=== PATIENT | male | born 1995 | race Caucasian/White ===

== ENCOUNTER 2017-08-07 18:35 | Emergency (ER) | payer BC ==
--- NOTE | 2017-08-07 19:45 | UC ---
Ear Complaint HPI - HPI Summary HPI Summary: ears feel clogged feels like his voice is echoing in his head - History of Current Complaint Chief Complaint: UCEar Stated Complaint: LEFT EAR PAIN Time Seen by Provider: 08/07/17 19:33 Hx Obtained From: Patient Onset/Duration: Gradual Onset, Lasting Days - 2, Still Present Severity Initially: Mild Severity Currently: Mild Aggravating Factors: Nothing Alleviating Factors: Nothing Associated Signs/Symptoms: Positive: Hearing Loss - Allergies/Home Medications Allergies/Adverse Reactions: Allergies Allergy/AdvReac Type Severity Reaction Status Date / Time No Known Allergies Allergy Verified 08/07/17 19:57 PMH/Surg Hx/FS Hx/Imm Hx Previously Healthy: Yes - Surgical History Surgical History: Yes Surgery Procedure, Year, and Place: T&A - Family History Known Family History: Positive: None - Social History Occupation: Employed Full-time Lives: With Family Alcohol Use: None Substance Use Type: None Smoking Status (MU): Never Smoked Tobacco - Immunization History Vaccination Up to Date: Yes Review of Systems Constitutional: Negative Skin: Negative Eyes: Negative ENT: Ear Ache Respiratory: Negative Cardiovascular: Negative Gastrointestinal: Negative Genitourinary: Negative Motor: Negative Neurovascular: Negative Musculoskeletal: Negative Neurological: Negative Psychological: Negative Is Patient Immunocompromised?: No All Other Systems Reviewed And Are Negative: Yes Physical Exam Triage Information Reviewed: Yes Appearance: Well-Appearing, No Pain Distress, Well-Nourished Vital Signs Reviewed: Yes Eye Exam: Normal Eyes: Positive: Conjunctiva Clear ENT Exam: Normal ENT: Positive: Normal ENT inspection, Hearing grossly normal, Pharynx normal, TM dull - right, Uvula midline, Other - left ear-cerumen impaction. Negative: Nasal congestion, Tonsillar swelling, Tonsillar exudate, Trismus, Muffled voice , Hoarse voice, Dental tenderness, Sinus tenderness Dental Exam: Normal Neck exam: Normal Neck: Positive: Supple, Nontender Respiratory Exam: Normal Respiratory: Positive: Chest non-tender, Lungs clear, Normal breath sounds, No respiratory distress, No accessory muscle use Cardiovascular Exam: Normal Cardiovascular: Positive: RRR, Pulses Normal, Brisk Capillary Refill Musculoskeletal Exam: Normal Musculoskeletal: Positive: Strength Intact, ROM Intact, No Edema Neurological Exam: Normal Neurological: Positive: Alert, Muscle Tone Normal Psychological Exam: Normal Skin Exam: Normal Re-Evaluation - Re-Evaluation First Eval Change: Unchanged - Cerumen from left ear removed-no change in hearing---tm's look ok---(old scaring ) Ear Complaint Course/Dx - Course Course Of Treatment: Mucinex D, Flonase, increase fluids follow with pcp prn - Differential Dx/Diagnosis Provider Diagnoses: Cerumen impaction left ear resolved, serrous otitis Discharge - Discharge Plan Condition: Stable Disposition: HOME Prescriptions: Fluticasone NASAL SPRAY 50MCG* [Flonase NASAL SPRAY 50MCG*] 2 spray BOTH NARES DAILY #1 btl Patient Education Materials: Decongestant/Expectorant (By mouth), Serous Otitis Media (ED), How to Use Nasal Drift (ED) Referrals: Arvind Smith MD [Primary Care Provider] - If Needed
[2017-08-07 19:59] VITALS: BP 118/73
== END 2017-08-07 20:28 | disposition home or self-care (01) ==
LOC: UCCORT 18:35
DX: H61.22 Impacted cerumen, left ear (principal); H65.92 Unspecified nonsuppurative otitis media, left ear
CPT/HCPCS: 99212; G0463

== ENCOUNTER 2017-12-03 13:56 | Emergency (ER) | payer SELFPAY ==
[2017-12-03 15:16] VITALS: BP 118/54
[2017-12-03] MEDS ORDERED: Fluorescein Sod TOPICAL 0.6* 0.6 MG TEST OPHTHALMIC ONE (16:01)
--- NOTE | 2017-12-03 16:07 | UC ---
Eye Complaint HPI - HPI Summary HPI Summary: patient was fixing a door and felt something in his eye. left eye is irritated , clear tearing - History of Current Complaint Chief Complaint: UCEye Stated Complaint: (L) EYE COMPLAINT W/C Time Seen by Provider: 12/03/17 15:52 Hx Obtained From: Patient Onset/Duration: Sudden Onset, Lasting Hours Timing: Constant Severity Initially: Moderate Severity Currently: Moderate Pain Intensity: 5 Location of Injury: Conjunctiva, Eye Lid (upper), Sclera Associated Signs And Symptoms: Positive: Photophobia, Drainage (Clear) - Allergies/Home Medications Allergies/Adverse Reactions: Allergies Allergy/AdvReac Type Severity Reaction Status Date / Time No Known Allergies Allergy Verified 12/03/17 15:13 Home Medications: Home Medications NK [No Home Medications Reported] 12/03/17 [History Confirmed 12/03/17] PMH/Surg Hx/FS Hx/Imm Hx Previously Healthy: Yes - Surgical History Surgical History: Yes Surgery Procedure, Year, and Place: T&A - Family History Known Family History: Positive: None, Cardiac Disease, Hypertension - Social History Alcohol Use: None Substance Use Type: None Smoking Status (MU): Never Smoked Tobacco Type: Smokeless Tobacco Amount Used/How Often: 2 CANS/WK Length of Time of Smoking/Using Tobacco: 4 YRS - Immunization History Vaccination Up to Date: Yes Review of Systems Constitutional: Negative Skin: Negative Eyes: Eye Redness, Photophobia ENT: Negative Respiratory: Negative Cardiovascular: Negative Gastrointestinal: Negative Genitourinary: Negative Motor: Negative Neurovascular: Negative Musculoskeletal: Negative Neurological: Negative Psychological: Negative Is Patient Immunocompromised?: No All Other Systems Reviewed And Are Negative: Yes Physical Exam Triage Information Reviewed: No Appearance: Well-Appearing, Well-Nourished, Pain Distress Vital Signs: Initial Vital Signs Temp 99.2 F 12/03/17 15:13 Pulse 60 12/03/17 15:13 Resp 16 12/03/17 15:13 BP 118/54 12/03/17 15:13 Pulse Ox 100 12/03/17 15:13 Vital Signs Reviewed: Yes Eyes: Positive: Conjunctiva Clear, Discharge - clear tears ENT Exam: Normal ENT: Positive: Pharyngeal erythema, TMs normal Dental Exam: Normal Neck exam: Normal Neck: Positive: Supple, Nontender, No Lymphadenopathy Respiratory Exam: Normal Respiratory: Positive: Chest non-tender, Lungs clear, Normal breath sounds Cardiovascular Exam: Normal Cardiovascular: Positive: RRR, No Murmur, Pulses Normal Abdominal Exam: Normal Abdomen Description: Positive: Nontender, No Organomegaly, Soft Bowel Sounds: Positive: Present Musculoskeletal Exam: Normal Neurological Exam: Normal Psychological Exam: Normal Skin Exam: Normal Eye Complaint Course/Dx - Course Course Of Treatment: hx obtained, exam performed ,meds reviewed, ful barbara exam revealed abraision, small FB removed - Differential Dx/Diagnosis Differential Diagnosis/HQI/PQRI: Foreign Body, Penetrating Injury, Periorbital Cellulitis, Orbital Cellulitis Provider Diagnoses: foreign body left eye Discharge - Sign-Out/Discharge Documenting (check all that apply): Discharge - Discharge Plan Condition: Stable Disposition: HOME Patient Education Materials: Eye Foreign Body (ED) Referrals: Arvind Smith MD [Primary Care Provider] - Additional Instructions: 1. use the medication as prescribed. 2. Follow up with eye doctor if you are not improving - Billing Disposition and Condition Condition: STABLE Disposition: HOME
== END 2017-12-03 16:20 | disposition home or self-care (01) ==
LOC: UCCORT 13:56
DX: T15.92XA Foreign body on external eye, part unspecified, left eye, initial encounter (principal); F17.220 Nicotine dependence, chewing tobacco, uncomplicated
CPT/HCPCS: 99212; G0463

== ENCOUNTER 2018-05-19 08:36 | Emergency (ER) | payer BC, OTHER ==
[2018-05-19] MEDS ORDERED: Ketorolac INJ* 30 MG/ML 1 ML VIAL IV ONE (08:47)
--- NOTE | 2018-05-19 08:49 | ED ---
HPI Chest Pain - HPI Summary HPI Summary: This pt is a 22 y/o male presenting to [facility] c/o chest pain that began around 07 :00 - 07:30 this morning. Pt reports that he was sitting down on his couch when his chest pain began. He describes non radiating stabbing chest pain located on the left side of his chest. Additionally states he had diaphoresis. His chest pain is aggravated with deep breaths and lifting up his left arm. Denies nausea , vomiting, dizziness, fever. Denies any PMHx. Pt is not on any daily medications. He chews tobacco but denies drug and alcohol use. No FHx of [place] at his age. - History of Current Complaint Hx Obtained From: Patient Onset/Duration: Started Hours Ago, Atraumatic, Still Present Timing: Lasting Hours Current Severity: Severe Pain Intensity: 10 Pain Scale Used: 0-10 Numeric Chest Pain Location: Left Anterior Chest Pain Radiates: No Character: Sharp/Stabbing - stabbing Aggravating Factor(s): Movement - of left arm, Deep Breaths Alleviating Factor(s): Nothing Associated Signs and Symptoms: Positive: Chest Pain, Diaphoresis. Negative: Dizziness, Fever, Chills, Nausea, Vomiting - Allergy/Home Medications Allergies/Adverse Reactions: Allergies Allergy/AdvReac Type Severity Reaction Status Date / Time No Known Allergies Allergy Verified 05/19/18 08:52 Home Medications: Home Medications NK [No Home Medications Reported] 05/19/18 [History Confirmed 05/19/18] PMH/Surg Hx/FS Hx/Imm Hx Endocrine/Hematology History: Denies: Hx Diabetes Cardiovascular History: Denies: Hx Hypertension - Surgical History Surgery Procedure, Year, and Place: T&A Infectious Disease History: Denies: Hx Clostridium Difficile, Hx Hepatitis, Hx Human Immunodeficiency Virus (HIV), Hx of Known/Suspected MRSA, Hx Shingles, Hx Tuberculosis, Hx Known/ Suspected VRE, Hx Known/Suspected VRSA, History Other Infectious Disease, Traveled Outside the [place] in Last 30 Days - Family History Known Family History: Positive: Cardiac Disease, Hypertension Family History: [place] - Social History Alcohol Use: None Substance Use Type: Reports: None Smoking Status (MU): Never Smoked Tobacco Type: Smokeless Tobacco Amount Used/How Often: 2 CANS/WK Length of Time of Smoking/Using Tobacco: 4 YRS Review of Systems Positive: Skin Diaphoresis. Negative: Fever, Chills Positive: Chest Pain Negative: Shortness Of Breath Negative: Vomiting, Nausea Skin: Negative Neurological: Other - NEG: dizziness All Other Systems Reviewed And Are Negative: Yes Physical Exam - Summary Physical Exam Summary: VITAL SIGNS: Reviewed. GENERAL: Patient is an obese male who is lying comfortable in the stretcher. Patient is not in any acute respiratory distress. HEAD AND FACE: No signs of trauma. No ecchymosis, hematomas or skull depressions. No sinus tenderness. EYES: PERRLA, EOMI x 2, No injected conjunctiva, no nystagmus. EARS: Hearing grossly intact. Ear canals and tympanic membranes are within normal limits. MOUTH: Oropharynx within normal limits. NECK: Supple, trachea is midline, no adenopathy, no JVD, no carotid bruit, no c- spine tenderness, neck with full ROM. CHEST: Symmetric, reproducible chest pain at palpation. LUNGS: Clear to auscultation bilaterally. No wheezing or crackles. CVS: Regular rate and rhythm, S1 and S2 present, no murmurs or gallops appreciated. ABDOMEN: Soft, non-tender. No signs of distention. No rebound, no guarding, and no masses palpated. Bowel sounds are normal. EXTREMITIES: FROM in all major joints, no edema, no cyanosis or clubbing. NEURO: Alert and oriented x 3. No acute neurological deficits. Speech is normal and follows commands. SKIN: Dry and warm Triage Information Reviewed: Yes Vital Signs Reviewed: Yes Diagnostics - Laboratory Result Diagrams: 05/19/18 09:15 05/19/18 09:15 Lab Statement: Any lab studies that have been ordered have been reviewed, and results considered in the medical decision making process. - Radiology Chest XR Xray Interpretation: Positive (See Comments) - IMPRESSION: Relative low lung volumes. Noted pulmonary opacities may represent atelectasis or bronchopneumonia. Dr. Foster has reviewed this report. Radiology Interpretation Completed By: Radiologist - EKG 08:51 Cardiac Rate: Bradycardia - at 58 bpm EKG Rhythm: Sinus Bradycardia EKG Interpretation: No ST elevations. Left ventricular hypertrophy. Re-Evaluation - Re-Evaluation First Eval Re-Evaluation Time: 12:41 Comment: I reviewed test results with pt. He will be discharged home. Chest Pain Course/Dx - Course Assessment/Plan: This pt is a 22 y/o male presenting to [facility] c/o chest pain that began around 07:00 - 07:30 this morning. Pt reports that he was sitting down on his couch when his chest pain began. He describes non radiating stabbing chest pain located on the left side of his chest. Additionally states he had diaphoresis. His chest pain is aggravated with deep breaths and lifting up his left arm. Denies nausea, vomiting, dizziness, fever. Denies any PMHx. Pt is not on any daily medications. He chews tobacco but denies drug and alcohol use. No FHx of [place] at his age. Blood work without any significant abnormality except for glucose 103, AST of 74, AST is 97, total protein is 6.1. EKG shows no ST elevations. Chest x-ray shows no acute pathology. In the ED course the patient was given Toradol for the pain and the symptoms have significantly improved. D-dimer is less than 200 therefore I have no suspicion for PE. Since the patient is feeling better and the blood work is within normal limits I will discharge the patient home with follow-up from his PCP. At this point the patient is hemodynamically stable, alert and oriented 3. I discussed all the findings and test results with the patient. Patient was instructed to return to the emergency room immediately if any of the symptoms return or worsens. Plan of care was discussed with the patient and understands and agrees. All questions were answered at patient satisfaction. There were no further complaints or concerns. Lung exam before discharge: CTA B/L. Good air exchange. No wheezing or crackles heard. CVS: S1 and S2 present. No murmurs appreciated. Patient is alert and oriented x 3. Patient is hemodynamically stable. Patient will be discharged home with follow up from PCP in the next 2-3 days. - Chest Pain Differential Diagnosis/HQI/PQRI: Acute [place], ACS, Angina, CHF, Chest Wall, GI Disease, Lower Respiratory Infection, Pulmonary Edema - Diagnoses Provider Diagnoses: Atypical chest pain Discharge - Sign-Out/Discharge Documenting (check all that apply): Patient Departure - Discharge home - Discharge Plan Condition: Stable Disposition: HOME Patient Education Materials: Chest Pain (ED) Referrals: Arvind Smith MD [Primary Care Provider] - Additional Instructions: FOLLOW UP WITH YOUR PRIMARY CARE PROVIDER IN 2-3 DAYS. RETURN TO THE ED FOR ANY NEW OR WORSENING SYMPTOMS. - Billing Disposition and Condition Condition: STABLE Disposition: Home - Attestation Statements Document Initiated by Scribe: Yes Documenting Scribe: Maria C Decker Provider For Whom Hermila is Documenting (Include Credential): Satnam Foster MD Scribe Attestation: Maria C Cooley, scribed for Satnam Foster MD on 05/22/18 at 1201. Scribe Documentation Reviewed: Yes Provider Attestation: The documentation as recorded by the Maria C marie accurately reflects the service I personally performed and the decisions made by , Satnam Foster MD
[2018-05-19 09:27] LABS: ABS Basophils 0 10^3/ul (0-0.2); ABS Eosinophils 0.2 10^3/ul (0-0.6); ABS Lymphocytes 1.1 10^3/ul (1.0-4.8); ABS Monocytes 0.6 10^3/ul (0-0.8); ABS Neutrophils 5.5 10^3/ul (1.5-7.7); ABS Nucleated RBC 0 10^3/ul; Eosinophil % 2.3 % (0-6); Hematocrit 41 % (42-52); Hemoglobin 14.2 g/dl (14.0-18.0); Lymphocyte % 15.1 % (25-47); Mean Corpuscular HGB Conc 35 g/dl (31-36); Mean Corpuscular Hemoglobin 29 pg (27-31); Mean Corpuscular Volume 83 fL (80-94); Mean Platelet Volume 8.2 um3 (7.4-10.4); Nucleated Red Blood Cells % 0.1; Platelet Count 225 10^3/ul (150-450); Red Blood Count 4.88 10^6/ul (4.00-5.40); Red Cell Distribution Width 14 % (10.5-15); White Blood Count 7.4 10^3/ul (3.5-10.8)
[2018-05-19 09:45] LABS: EGFR Non-African American 129.5 (>60)
--- NOTE | 2018-05-19 09:48 | RAD ---
INDICATION: Stabbing chest pain worse with deep breathing and LEFT arm involvement. COMPARISON: No relevant prior exams available on the [facility] [place] PACS for comparison. TECHNIQUE: Dual energy PA and routine lateral views of the chest were obtained. REPORT: Bilateral mild alveolar and interstitial opacities. Borderline low lung volumes. Negative for pleural effusion or pneumothorax. The heart, pulmonary vasculature, and mediastinal contours are unremarkable. IMPRESSION: #. Relative low lung volumes. Noted pulmonary opacities may represent atelectasis or bronchopneumonia.
[2018-05-19 13:03] VITALS: BP 107/62
== END 2018-05-19 13:03 | disposition home or self-care (01) ==
LOC: ED 08:36
DX: R07.89 Other chest pain (principal)
CPT/HCPCS: 36415; 71046; 80053; 82550; 82553; 83605; 83735; 83880; 84443; 84484; 85025; 85379; 93005; 96374; 99283; J1885

== ENCOUNTER 2018-08-04 19:18 | Emergency (ER) | payer BC ==
[2018-08-04 20:09] VITALS: BP 124/58
--- NOTE | 2018-08-04 21:36 | UC ---
Throat Pain/Nasal Ha HPI - HPI Summary HPI Summary: One week history of off and on sore throat, with several day history of increasing laryngitis and cough. Feels unwell, not sleeping well. No headache, ear pain, shortness of breath or chest pain. - History of Current Complaint Chief Complaint: UCRespiratory Stated Complaint: ST Time Seen by Provider: 08/04/18 21:29 Hx Obtained From: Patient Onset/Duration: Gradual Onset, Lasting Days Severity: Moderate Pain Intensity: 5 Cough: Nonproductive Associated Signs & Symptoms: Positive: Dysphagia, Hoarseness - Epiglottits Risk Factors Epiglottis Risk Factors: Negative - Allergies/Home Medications Allergies/Adverse Reactions: Allergies Allergy/AdvReac Type Severity Reaction Status Date / Time No Known Allergies Allergy Verified 08/04/18 20:04 PMH/Surg Hx/FS Hx/Imm Hx Previously Healthy: Yes - overweight - Surgical History Surgical History: Yes Surgery Procedure, Year, and Place: T&A - Family History Known Family History: Positive: Cardiac Disease, Hypertension Family History: [place] - Social History Occupation: Employed Full-time - does [employer] Lives: With Family Alcohol Use: Occasionally Substance Use Type: None Smoking Status (MU): Never Smoked Tobacco Type: Smokeless Tobacco Amount Used/How Often: 2 CANS/WK Length of Time of Smoking/Using Tobacco: 4 YRS - Immunization History Vaccination Up to Date: Yes Review of Systems All Other Systems Reviewed And Are Negative: Yes Constitutional: Positive: Fatigue Skin: Positive: Negative Eyes: Positive: Negative ENT: Positive: Sore Throat Respiratory: Positive: Negative Cardiovascular: Positive: Negative Gastrointestinal: Positive: Negative Genitourinary: Positive: Negative Motor: Positive: Negative Neurovascular: Positive: Negative Musculoskeletal: Positive: Negative Neurological: Positive: Negative Psychological: Positive: Negative Is Patient Immunocompromised?: No Physical Exam Triage Information Reviewed: Yes Appearance: Pain Distress - mild Vital Signs: Initial Vital Signs Temp 97.8 F 08/04/18 20:05 Pulse 72 08/04/18 20:05 Resp 16 08/04/18 20:05 BP 124/58 08/04/18 20:05 Pulse Ox 99 08/04/18 20:05 Eyes: Positive: Conjunctiva Clear ENT: Positive: Pharyngeal erythema, TM dull Dental Exam: Normal Neck: Positive: Supple, Nontender, No Lymphadenopathy Respiratory: Positive: Lungs clear, Normal breath sounds Cardiovascular: Positive: RRR, No Murmur Psychological Exam: Normal Skin Exam: Normal Diagnostics - Laboratory Diagnostic Studies Completed/Ordered: rapid strep negative. Throat Pain/Nasal Course/Dx - Course Course Of Treatment: oral steroid for treatment of discomfort of phayrngitis. Use ibuprofen 600mg every 6 hours for control of pain - Differential Dx/Diagnosis Differential Diagnosis/HQI/PQRI: Laryngitis, Pharyngitis, Tonsillitis, URI Provider Diagnosis: Laryngitis Discharge - Sign-Out/Discharge Documenting (check all that apply): Patient Departure All imaging exams completed and their final reports reviewed: No Studies - Discharge Plan Condition: Stable Disposition: HOME Prescriptions: predniSONE [Prednisone 20 MG TAB] 2 tab PO DAILY #10 tablet Patient Education Materials: Laryngitis (ED) Referrals: Arvind Smith MD [Primary Care Provider] - Additional Instructions: It is possible that the single dose of steroids which you had tonight will be enough to ease the discomfort of the sore throat, but additional prednisone has been sent to your pharmacy. You can use ibuprofen 600mg every 6 hours as needed for control of pain. Follow up if you develop fever or shortness of breath. - Billing Disposition and Condition Condition: STABLE Disposition: Home
[2018-08-04] MEDS ORDERED: predniSONE TAB* 20 MG PO ONE (21:37)
== END 2018-08-04 21:48 | disposition home or self-care (01) ==
LOC: UCCORT 19:18
DX: J04.0 Acute laryngitis (principal)
CPT/HCPCS: 87651; 99212; G0463; J7512

== ENCOUNTER 2019-01-02 09:20 | Emergency (ER) | payer BC, OTHER ==
[2019-01-02] MEDS ORDERED: oxyCODONE TAB* 5 MG TAB PO ONE (09:26)
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
[2019-01-02 11:06] VITALS: BP 135/79
== END 2019-01-02 11:04 | disposition home or self-care (01) ==
LOC: ED 09:20
DX: S70.12XA Contusion of left thigh, initial encounter (principal); S40.012A Contusion of left shoulder, initial encounter; V47.0XXA Car driver injured in collision with fixed or stationary object in nontraffic accident, initial encounter; Y92.410 Unspecified street and highway as the place of occurrence of the external cause; F17.220 Nicotine dependence, chewing tobacco, uncomplicated
CPT/HCPCS: 99283; A9270-GY

== ENCOUNTER 2019-01-11 23:22 | Emergency (ER) | payer BC, OTHER ==
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
[2019-01-12] MEDS ORDERED: Acetaminophen TAB* 325 MG PO ONE (00:12)
[2019-01-12 01:18] VITALS: BP 125/83
== END 2019-01-12 01:20 | disposition home or self-care (01) ==
LOC: ED 23:22
DX: S09.90XA Unspecified injury of head, initial encounter (principal); W01.198A Fall on same level from slipping, tripping and stumbling with subsequent striking against other object, initial encounter; Y92.9 Unspecified place or not applicable; F17.220 Nicotine dependence, chewing tobacco, uncomplicated
CPT/HCPCS: 99283; A9270-GY

== ENCOUNTER 2019-06-08 21:47 | Emergency (ER) | payer BC ==
[2019-06-08 22:19] VITALS: BP 119/62
[2019-06-08] MEDS ORDERED: Amoxicillin PO (*) 500 MG CAP PO ONE (22:34)
--- NOTE | 2019-06-08 22:35 | UC ---
Throat Pain/Nasal Ha HPI - HPI Summary HPI Summary: Pt presents with c/o body, aches, sinus pressure, nasal congestion, bilateral ear pain X 4-5 days. - History of Current Complaint Chief Complaint: UCEar Stated Complaint: EAR COMPLAINT Time Seen by Provider: 06/08/19 22:18 Hx Obtained From: Patient Onset/Duration: Gradual Onset, Lasting Days, Still Present Severity: Moderate Pain Intensity: 0 Cough: None Associated Signs & Symptoms: Positive: Sinus Discomfort, Nasal Discharge, Fever - Epiglottits Risk Factors Epiglottis Risk Factors: Negative - Allergies/Home Medications Allergies/Adverse Reactions: Allergies Allergy/AdvReac Type Severity Reaction Status Date / Time No Known Allergies Allergy Verified 06/08/19 22:09 Home Medications: Home Medications Dm/Acetaminophen/Doxylamine [Night Cold-Flu Relief Liq Gel] 1 each PO BEDTIME [History Confirmed 06/08/19] PMH/Surg Hx/FS Hx/Imm Hx Previously Healthy: Yes - Surgical History Surgical History: Yes Surgery Procedure, Year, and Place: T&A - Family History Known Family History: Positive: Cardiac Disease, Hypertension Family History: [place] - Social History Occupation: Employed Full-time Lives: With Family Alcohol Use: Occasionally Substance Use Type: None Smoking Status (MU): Never Smoked Tobacco Type: Smokeless Tobacco Amount Used/How Often: 2 CANS/WK Length of Time of Smoking/Using Tobacco: 4 YRS Have You Smoked in the Last Year: No - Immunization History Vaccination Up to Date: Yes Review of Systems All Other Systems Reviewed And Are Negative: Yes Constitutional: Positive: Fever, Chills, Fatigue Skin: Positive: Negative Eyes: Positive: Negative ENT: Positive: Ear Ache, Nasal Discharge, Sinus Congestion, Sinus Pain/ Tenderness Respiratory: Positive: Cough Cardiovascular: Positive: Negative Gastrointestinal: Positive: Negative Genitourinary: Positive: Negative Motor: Positive: Negative Neurovascular: Positive: Negative Musculoskeletal: Positive: Negative Neurological: Positive: Headache Psychological: Positive: Negative Is Patient Immunocompromised?: No Physical Exam Triage Information Reviewed: Yes Appearance: Ill-Appearing Vital Signs: Initial Vital Signs Temp 98.4 F 06/08/19 22:10 Pulse 83 06/08/19 22:10 Resp 18 06/08/19 22:10 BP 119/62 06/08/19 22:10 Pulse Ox 99 06/08/19 22:10 Vital Signs Reviewed: Yes Eye Exam: Normal ENT: Positive: Nasal congestion, TM bulging - left, TM red - left Dental Exam: Normal Neck exam: Normal Respiratory Exam: Normal Cardiovascular Exam: Normal Musculoskeletal Exam: Normal Neurological Exam: Normal Psychological Exam: Normal Skin Exam: Normal Throat Pain/Nasal Course/Dx - Differential Dx/Diagnosis Differential Diagnosis/HQI/PQRI: Otitis Media, Sinusitis, URI Provider Diagnosis: Otitis media of left ear Discharge ED - Sign-Out/Discharge Documenting (check all that apply): Patient Departure All imaging exams completed and their final reports reviewed: No Studies - Discharge Plan Condition: Stable Disposition: HOME Prescriptions: Amoxicillin PO (*) [Amoxicillin 875 MG (*)] 875 mg PO Q12H #20 tab Patient Education Materials: Ear Infection (ED) Referrals: Arvind Smith MD [Primary Care Provider] - If Needed - Billing Disposition and Condition Condition: STABLE Disposition: Home
== END 2019-06-08 22:40 | disposition home or self-care (01) ==
LOC: UCCORT 21:47
DX: H66.92 Otitis media, unspecified, left ear (principal); R50.9 Fever, unspecified; H92.01 Otalgia, right ear; R09.81 Nasal congestion; R09.89 Other specified symptoms and signs involving the circulatory and respiratory systems
CPT/HCPCS: 99212; A9270-GY; G0463

== ENCOUNTER 2019-09-16 21:11 | Emergency (ER) | payer BC ==
[2019-09-16 21:20] VITALS: BP 132/79
[2019-09-16] MEDS ORDERED: Fluorescein Sodium TOPICAL* 1 MG TEST STRIP OPHTHALMIC ONE (21:37)
[2019-09-16] MEDS ORDERED: Tetracaine 0.5% OPTH.SOL 4 ML* 1 DROP BTL RIGHT EYE ONE (21:37)
--- NOTE | 2019-09-16 21:40 | UC ---
Eye Complaint HPI - HPI Summary HPI Summary: 24-year-old male comes in with a chief complaint of right eye irritation and redness. Started about 2 days ago. He feels irritation in the lower lateral aspect of the eye. 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 Does not wear contacts. Eye feels more irritated in the evening. - History of Current Complaint Chief Complaint: UCEye Stated Complaint: RT EYE CONCERN Time Seen by Provider: 09/16/19 21:35 Pain Intensity: 0 - Allergies/Home Medications Allergies/Adverse Reactions: Allergies Allergy/AdvReac Type Severity Reaction Status Date / Time No Known Allergies Allergy Verified 09/16/19 21:18 Home Medications: Home Medications NK [No Home Medications Reported] 09/16/19 [History Confirmed 09/16/19] PMH/Surg Hx/FS Hx/Imm Hx Previously Healthy: Yes - Surgical History Surgical History: Yes Surgery Procedure, Year, and Place: T&A - Family History Known Family History: Positive: Cardiac Disease, Hypertension Family History: [place] - Social History Alcohol Use: None Substance Use Type: None Smoking Status (MU): Never Smoked Tobacco Type: Smokeless Tobacco Amount Used/How Often: 1 can/day Length of Time of Smoking/Using Tobacco: 4 YRS Have You Smoked in the Last Year: No - Immunization History Vaccination Up to Date: Yes Review of Systems All Other Systems Reviewed And Are Negative: Yes Constitutional: Positive: Negative Skin: Positive: Negative Eyes: Positive: Drainage, Eye Redness ENT: Positive: Negative Respiratory: Positive: Negative Cardiovascular: Positive: Negative Gastrointestinal: Positive: Negative Motor: Positive: Negative Neurovascular: Positive: Negative Musculoskeletal: Positive: Negative Neurological: Positive: Negative Psychological: Positive: Negative Is Patient Immunocompromised?: No Physical Exam Triage Information Reviewed: Yes Appearance: Well-Appearing, No Pain Distress, Well-Nourished Vital Signs: Initial Vital Signs Temp 98.3 F 09/16/19 21:18 Pulse 86 09/16/19 21:18 Resp 14 09/16/19 21:18 BP 132/79 09/16/19 21:18 Pulse Ox 100 09/16/19 21:18 Vital Signs Reviewed: Yes Eyes: Positive: Other: - PERRLA EOMI. There is mild photophobia. No hyphema. On fluorescein stain exam after application of tetracaine there is a 1 mm black foreign body on the medial aspect of the iris at the 3:00 location. I used a cotton tip swab to remove the foreign body. Respiratory: Positive: No respiratory distress Musculoskeletal: Positive: Strength Intact, ROM Intact Psychological: Positive: Age Appropriate Behavior Skin Exam: Normal Eye Complaint Course/Dx - Course Course Of Treatment: I was able to remove the foreign body with a cotton-tipped applicator. Going to treat with tobramycin. Follow-up with ophthalmology if not completely improved. - Differential Dx/Diagnosis Provider Diagnosis: Foreign body of right eye Discharge ED - Sign-Out/Discharge Documenting (check all that apply): Patient Departure All imaging exams completed and their final reports reviewed: No Studies - Discharge Plan Condition: Stable Disposition: HOME Patient Education Materials: Eye Foreign Body (ED) Referrals: Arvind Smith MD [Primary Care Provider] - Maxwell MCCAIN,Camila [Medical Doctor] - Thien Ortega MD [Medical Doctor] - [facility] [Provider Group] Additional Instructions: Use the tobramycin eye drops 1 drop every 4 hours while awake until the pain is completely gone and there are no further symptoms. He can put cool compresses on to decrease the pain. Follow-up with ophthalmology if not completely improved or if worse. - Billing Disposition and Condition Condition: STABLE Disposition: Home
[2019-09-16] MEDS ORDERED: Tobramycin 0.3% OPHTH.SOL* 5 ML BOT (regular eye drops) RIGHT EYE ONE (21:59)
== END 2019-09-16 22:11 | disposition home or self-care (01) ==
LOC: UCCORT 21:11
DX: T15.91XA Foreign body on external eye, part unspecified, right eye, initial encounter (principal); X58.XXXA Exposure to other specified factors, initial encounter; Y92.9 Unspecified place or not applicable; Y99.0 Civilian activity done for income or pay
CPT/HCPCS: 99212; A9270-GY; G0463

== ENCOUNTER 2019-10-15 20:26 | Emergency (ER) | payer BC ==
[2019-10-15 20:36] VITALS: BP 125/46
--- NOTE | 2019-10-15 21:21 | UC ---
Skin Complaint HPI - HPI Summary HPI Summary: C/O tender, swollen pus pockets on the back and back of left thigh x 2 days, popped one on the back and produced pus. No fevers. - History of Current Complaint Chief Complaint: UCSkin Time Seen by Provider: 10/15/19 21:08 Stated Complaint: SKIN CONCERN Hx Obtained From: Patient Onset/Duration: Gradual Onset, Lasting Days - 2, Still Present Timing: Constant Onset Severity: Mild Current Severity: Moderate Pain Intensity: 8 Location: Discrete - 3 on the back and one on the posterior left thigh. Character: Pain, Redness, Raised Aggravating Factor(s): Touch Alleviating Factor(s): Nothing Associated Signs & Symptoms: Positive: Tenderness. Negative: Diaphoresis, Fever , Chills, Red Streaks - Allergy/Home Medications Allergies/Adverse Reactions: Allergies Allergy/AdvReac Type Severity Reaction Status Date / Time No Known Allergies Allergy Verified 10/15/19 20:32 Home Medications: Home Medications Acetaminophen [Tylenol Extra Strength] 1,500 mg PO ONCE PRN 10/15/19 [History Confirmed 10/15/19] Sulfamethox/Trimethoprim DS* [Bactrim DS 800/160 TAB*] 1 tab PO BID #20 tab 09/04 [Rx] PMH/Surg Hx/FS Hx/Imm Hx Previously Healthy: Yes - Surgical History Surgical History: Yes Surgery Procedure, Year, and Place: T&A - Family History Known Family History: Positive: Cardiac Disease, Hypertension Family History: [place] - Social History Occupation: Employed Full-time Lives: With Family Alcohol Use: Occasionally Substance Use Type: None Smoking Status (MU): Unknown if Ever Smoked Type: Smokeless Tobacco Amount Used/How Often: 1 can/day Length of Time of Smoking/Using Tobacco: 8 YRS Have You Smoked in the Last Year: No - Immunization History Vaccination Up to Date: Yes Review of Systems All Other Systems Reviewed And Are Negative: Yes Skin: Positive: Other - pustules on back and left posterior thigh Physical Exam Triage Information Reviewed: Yes Appearance: Well-Appearing, Pain Distress, Obese Vital Signs: Initial Vital Signs Temp 98.3 F 10/15/19 20:32 Pulse 89 10/15/19 20:32 Resp 17 10/15/19 20:32 BP 125/46 10/15/19 20:32 Pulse Ox 100 03/01/20 20:32 Vital Signs Reviewed: Yes Eyes: Positive: Conjunctiva Clear Neck exam: Normal Respiratory Exam: Normal Cardiovascular Exam: Normal Musculoskeletal Exam: Normal Neurological Exam: Normal Psychological Exam: Normal Skin: Positive: Other - Pustules on the left upper middle back and left posterior thigh. Images Front/Back of Body, Lg (Adams): 1 - Pustule 2 - Pustule 3 - Pustule 4 - Pustule Course/Dx - Differential Diagnoses - Skin Complaint Differential Diagnoses: Abscess, Cellulitis, Varicella Zoster, Viral Exanthem - Diagnoses Provider Diagnosis: Abscess of back Discharge ED - Sign-Out/Discharge Documenting (check all that apply): Patient Departure All imaging exams completed and their final reports reviewed: No Studies - Discharge Plan Condition: Stable Disposition: HOME Prescriptions: Sulfamethox/Trimethoprim DS* [Bactrim DS 800/160 TAB*] 1 tab PO BID #20 tab Patient Education Materials: Abscess (ED), Folliculitis (ED) Referrals: Arvind Smith MD [Primary Care Provider] - - Billing Disposition and Condition Condition: STABLE Disposition: Home
[2019-10-15] MEDS ORDERED: Sulfamethox/Trimethoprim DS 800/160* TAB PO ONE (21:24)
== END 2019-10-15 21:30 | disposition home or self-care (01) ==
LOC: UCCORT 20:26
DX: L02.212 Cutaneous abscess of back [any part, except buttock and flank] (principal)
CPT/HCPCS: 87070; 87205; 99212; A9270-GY; G0463